=== PATIENT | female | born 1995 | race African-American/Black ===

== ENCOUNTER 2017-06-07 20:03 | Emergency (ER) | payer SELFPAY ==
[2017-06-07 20:58] LABS: Bilirubin Negative (Negative); Blood, Urine Large (Negative); Glucose, Urine (Dipstick) Negative (Negative); Ketone, Urine Negative (Negative); Nitrite Negative (Negative); Protein, Urine (Dipstick) Negative (Neg-Trace); Urobilinogen 0.2 mg/dL (0.2-1.0)
[2017-06-07 21:02] LABS: Bacteria/HPF None Seen HPF (None Seen); Hyaline Casts/LPF NONE SEEN LPF (0-3 Hyaline); RBC/HPF 21-50 HPF (0-3); Squamous Epithelial 0-3 HPF (0-3); WBC/HPF 0-3 HPF (0-3)
[2017-06-07] MEDS ORDERED: Ondansetron ODT 4 MG TAB ONE (22:04)
[2017-06-07] MEDS ORDERED: Dicyclomine HCl 20 mg/2 ml Ampule ONE (22:04)
== END 2017-06-07 22:30 | disposition home or self-care (01) ==
LOC: ERS 20:03
DX: K52.9 Noninfective gastroenteritis and colitis, unspecified (principal); J45.909 Unspecified asthma, uncomplicated; F41.9 Anxiety disorder, unspecified; F31.9 Bipolar disorder, unspecified; F17.210 Nicotine dependence, cigarettes, uncomplicated; Z79.899 Other long term (current) drug therapy
CPT/HCPCS: 81003; 81015; 81025; 87480; 87491; 87510; 87591; 87660; 96372; Q0162